=== PATIENT | male | born 1980 | race Caucasian/White ===

== ENCOUNTER 2019-09-06 13:55 | Inpatient (IN) | payer MEDICAID ==
[~2019-09-06] VITALS: Ht 167.6 cm; Wt 79.4 kg
[2019-09-06 13:59] VITALS: Ht 167.6 cm; Wt 79.4 kg
--- NOTE | 2019-09-06 14:08 | NUR ---
PT BIBA FROM HOME WITH CO RECTAL PAIN. PER MEDIC PT HAS BEEN HAVING THIS PAIN SINCE 09/02/19 AND HAS BEEN SEEN AT [facility] AND DX WITH HEMMRHOIDS AND PT STILL CO PAIN 07/06. UPON OBSERVATION NO HEMMRHOIDS NOTED OUTSIDE. PT IS AWAKE AND ALERT. BREATHING EVEN AND UNLABORED. PT RECLINING ON GURNEY WITH NAD. PT IS HOOKED UP TO FULL MONITORS, SIDE RAILS UP, WILL CONTINUE TOMONITOR.
[2019-09-06 15:04] LABS: PLATELET COUNT 288 x10^3mcL (130-400); RED CELL DISTRIBUTION WIDTH 12.2 % (11.5-14.5)
[2019-09-06 15:17] LABS: CALCIUM 9.2 mg/dL (8.5-10.1); CARBON DIOXIDE 31.8 mmol/L (21-32); CHLORIDE SERUM 100 mmol/L (98-107); CREATININE SERUM 0.9 mg/dL (0.7-1.3); GFR1 > 60 mL/min; GLUCOSE SERUM 139 mg/dL (74-106); SODIUM SERUM 139 mmol/L (136-145)
[2019-09-06 15:20] LABS: MONOCYTE 7 % (0-7); SEGMENTED NEUTROPHILS 86 % (37-75)
[2019-09-06 15:21] LABS: PLATELET MORPHOLOGY PLATELETS NORMAL; rbc morphology (normal/abnorm) NORMAL (NORMAL)
[2019-09-06 15:22] LABS: ALBUMIN 3.7 g/dL (3.4-5.0); ALKALINE PHOSPHATASE 102 U/L (46-116); ALT/SGPT 58 U/L (16-63); AST/SGOT 22 U/L (15-37); BILIRUBIN TOTAL 0.5 mg/dL (0.20-1.00); TOTAL PROTEIN, SERUM 8.4 g/dL (6.4-8.2)
[2019-09-06 15:39] LABS: UA SPECIFIC GRAVITY <=1.005 (1.005-1.035); microscopic required? YES; urine erythrocyte TRACE (NEGATIVE)
--- NOTE | 2019-09-06 15:55 | NUR ---
PT TAKEN TO CT VIA [facility] WITH NAD NOTED.
--- NOTE | 2019-09-06 16:44 | NUR ---
PT RESTING IN RNEY WITH SIDERAILS UP AND HOOKED UP TO BP AND PULSE OX. WILL CONTINUE TO MONITOR.
[2019-09-06] MEDS ORDERED: ZOFRAN8 MG PO (17:54)
[2019-09-06] MEDS ORDERED: DOK COLACE100 MG PO (17:56)
[2019-09-06] MEDS ORDERED: PERCOCET1 TAB PO (17:56)
--- NOTE | 2019-09-06 19:05 | NUR ---
PT REPORT RECEIVED FROM ABRAHAM RN TO ASSUME PT CARE. PT RESTING IN A POSITION OF COMFORT, PT REMAINS IN 10/10 PAIN AT THIS TIME. PT AOX4, RESPE EVEN AND UNLABORED, MILD DISTRESS NOTED FROM PAIN.
--- NOTE | 2019-09-06 19:17 | NUR ---
PT TRANSFERRED TO OR BY DEONNA MCNEIL. PT AOX4, MILD DISTRESS NOTED DUE TO PAIN, RESP EVEN AND UNLABORED. PER DEONNA MCNEIL, PT REPORT WILL BE CALLED TO THE FLOOR AFTER PROCEDURE DUE TO PT NOT HAVING A ROOM ASSIGNMENT AT THIS TIME.
[2019-09-06 21:27] LABS: AMPHETAMINE QUAL UR NONE DETECTED (See below)
[2019-09-06 21:45] VITALS: BP 115/75
--- NOTE | 2019-09-06 22:04 | NUR ---
RECEIVED PT FROM OR, PT ADMIT FOR RECTAL ABSCESS, PT IS A/O X4, VERBAL RESPONSIIVE. LUNG SOUND CLEAR BILATERAL, NO COUGH, NO SOB. PT DENY ANY CHEST PAIN OR DISCOMFORT, BOWEL SOUND PRESENT ALL 4 QUADRANTS, NO DISTENTION, NO TENDER. S/P I&D AT RIGHT PROXIMAL RECTAL. FIRST DRESSING UNABLE TO REMOVE TO MEASURE THE WOUND, DRESSING INTACT. PT C/O PAIN 2/10 AT THIS MOMENT. PEDAL PULSE PRESENT BOTH FEET, NO EDEMA, IV AT RIGHT AC, NO LEAKING, NO INFILTRATION. ALL ADLS ASSIST, ALL NEED MET, CALL LIGHT IN REACH, WILL CONTINUE TO MONITOR.
--- NOTE | 2019-09-06 22:28 | NUR ---
PT C/O PAIN ON THE SURGICAL AREA. GAVE PT MORPHINE IVP. PT TOLERATED IT WELL. WILL CONTINUE TO MONITOR.
--- NOTE | 2019-09-06 23:30 | NUR ---
RECIEVED PT FROM KALEB RN, PT IS RESTING ON SIDE WITH FAMILY MEMEBER AT BEDSIDE, ALL PT NEEDS ATTENDED TO, PT IN POSITION OF COMFORT AND STABLE, SAFETY PRECAUTIONS IN PLACE WILL CONTINUE TO MONITOR
[2019-09-07 06:00] VITALS: BP 93/57
--- NOTE | 2019-09-07 06:12 | NUR ---
PT RESTED IN BED SINCE ADMISSION WITH ON AND OFF PAIN THAT HAS BEEN TREATED TO EFFECT, BANDAGE WAS REINFORCED WITH TAPE, MODERATED SEROUSANGUINOUS DRAINAGE TO DRESSING, ALL PT NEEDS ATTENDED TO SAFETY PRECAUTIONS IN PLACE WILL CONTINUE TO MONITOR AND ENDORSE CARE
[2019-09-07 07:04] LABS: BASOPHIL % 0.3 % (0-2); PLATELET COUNT 245 x10^3mcL (130-400); RED CELL DISTRIBUTION WIDTH 12.3 % (11.5-14.5)
[2019-09-07 07:19] LABS: CALCIUM 8.8 mg/dL (8.5-10.1); CHLORIDE SERUM 102 mmol/L (98-107); CREATININE SERUM 0.8 mg/dL (0.7-1.3); GFR1 > 60 mL/min; GLUCOSE SERUM 121 mg/dL (74-106); MAGNESIUM 2.2 mg/dL (1.8-2.4); PHOSPHOROUS 3.6 mg/dL (2.5-4.9); POTASSIUM SERUM 3.4 mmol/L (3.5-5.1); SODIUM SERUM 138 mmol/L (136-145)
--- NOTE | 2019-09-07 08:29 | NUR ---
NORCO GIVEN PER EMAR FOR C/O 03/06 PAIN, WILL REASSESS.
[2019-09-07 08:41] VITALS: BP 102/48
--- NOTE | 2019-09-07 09:37 | NUR ---
RECIEVED PT RESTING IN BED WITH NO C/OANY DISTRESS. AT BEDSIDE. DENIES ANY PAIN AT THIS TIME. A/O X4 WITH NO IRIZARRY OR DIZZINESS. LUNGS CTAB. S/P I&D PERIRECATAL ABSCESS. DRESSING SOILED WITH MEDIUM AMOUNT OF BLOOD, WILL CHANGE AND KEEP CLEAN AND DRY. D5-NS45% RUNNING AT 80ML/HR IN RAC, CDI AND PATENT. SAFETY PRECAUTINS IN PLACE, CALL LIGHT WITHIN REACH, WILL MONITOR.
--- NOTE | 2019-09-07 11:02 | NUR ---
MORPHINE GIVEN PER EMAAR FOR C/O 04/05 WOUND PAIN. WOUND DRESSING CHANGED AND D/C GORDON PER MD ORDER. TOLERATED WELL.
[2019-09-07 12:34] VITALS: BP 107/53
--- NOTE | 2019-09-07 12:55 | NUR ---
Discount pharmacy card and list to low cost medical clinics given to patient by Collin Mckinney.
--- NOTE | 2019-09-07 14:52 | NUR ---
NORCO GIVEN PER EMAR FOR C/O 04/05 HETAL-WOUND PAIN, WILL REASSESS.
[2019-09-07 16:48] VITALS: BP 93/58
[2019-09-07 17:00] VITALS: BP 104/55
--- NOTE | 2019-09-07 18:15 | NUR ---
MORPHINE GIVEN PER EMAR FOR C/O 04/05 WOUND PAIN, WILL REASSESS.
--- NOTE | 2019-09-07 18:19 | NUR ---
PT STABLE AT THIS TIME WITH NO C/O ANY DISTRESS. PAIN MANAGEMENT MAINTAINED ALL SHIFT. WOUND DRESSING CHANGED AND CDI AT THIS TIME. GORDON D/C'D DUTING SHIFT, PT TOLERATED WELL AND HAS GOTTEN UP AND USED RESTROOM. A/O X4. D5NS45% RUNNING AT 80ML/HR, IV CDI AND PATENT. SAFETY PRECAUTIONS IN PLACE, CALL LIGHT WITHIN REACH, WILL ENDORSE CARE TO NIGHT NURSE.
--- NOTE | 2019-09-07 18:45 | NUR ---
PT STABLE WITH NO C/O PAIN OR DISTRESS. A/O X4 WITH NO IRIZARRY OR DIZZINESS. VS WNL. LUNGS CTAB. NS RUNNING AT 100ML/HR IN LEFT HAND, CDI AND PATENT WITH NO REDNESS OR INFLAMMATION. SAFETY PRECAUTIONS IN PLACE, CALL LIGHT WITHIN REACH, WILL ENDORSE CARE TO NIGHT NURSE.
--- NOTE | 2019-09-07 20:00 | NUR ---
PT A/A/O X4. DENIES DIZZINESS AND HEADACHE. BREATH SOUNDS CLEAR. BREATHING EVEN AND UNLABORED ON ROOM AIR. DENIES CHEST PAIN AND PRESSURE. BOWEL SOUNDS ACTIVE. NO C/O N/V AND ABD PAIN. SURGICAL WOUND WITH DRESSING NEAR RECTAL AREA C/D/I. PAIN LEVEL OF 6 OUT OF 10. DENIES NEED FOR PAIN MEDICATION. MADE PT COMFORTABLE. PLACED CALL LIGHT WITH IN REACH. WILL CONTINUE TO MONITOR.
[2019-09-07 20:59] VITALS: BP 103/58
--- NOTE | 2019-09-07 22:13 | NUR ---
PT C/O PAIN ON THE SURGICAL SIGHT. GAVE PT NORCO PO. PT TOLERATED IT WELL. WILL CONTINUE TO MONITOR.
--- NOTE | 2019-09-08 00:47 | NUR ---
PT WATCHING TV. NO C/O PAIN ON THE SURGICAL AREA. PT STATED HE HAD A BOWEL MOVEMENT. MADE PT COMFORTABLE. WILL CONTINUE TO MONITOR.
[2019-09-08 04:55] VITALS: BP 97/62
--- NOTE | 2019-09-08 05:18 | NUR ---
PT C/O PAIN ON THE SURGICAL SITE. GAVE PT NORCO PO. PT TOLERATED IT WELL. DRESSING ON THE BUTTOCKS INTACT WITH SMALL AMOUNT OF SANGUINEOUS DRAIN. IV INTACT AND INFUSING ORDERED. WILL ENDORSE TO THE AM NURSE ACCORDINGLY.
[2019-09-08 06:51] LABS: BASOPHIL % 0.3 % (0-2); PLATELET COUNT 269 x10^3mcL (130-400); RED CELL DISTRIBUTION WIDTH 12.7 % (11.5-14.5)
[2019-09-08 07:01] LABS: CALCIUM 8.6 mg/dL (8.5-10.1); CARBON DIOXIDE 30.6 mmol/L (21-32); CHLORIDE SERUM 105 mmol/L (98-107); CREATININE SERUM 0.8 mg/dL (0.7-1.3); GFR1 > 60 mL/min; GLUCOSE SERUM 115 mg/dL (74-106); MAGNESIUM 2.3 mg/dL (1.8-2.4); PHOSPHOROUS 3.6 mg/dL (2.5-4.9); SODIUM SERUM 142 mmol/L (136-145)
--- NOTE | 2019-09-08 07:23 | NUR ---
RECEIVED PT FROM RADIO PRESENTER NURSE. PT RESTING IN BED, AOX4, RESP E/U ON RA. DENIES NAUSEA OR RECTAL PAIN AT THIS TIME, DRESSING TO MID BUTTOCKS CDI S/P I AND D OF PERIRECTAL ABSCESS. NO ACUTE DISTRESS NOTED. IV TO RAC W/ NO SIGNS OF INFILTRATION, IVF INFUSING WELL. BED IN LOWEST POSITION AND CALL LIGHT WITHIN REACH. WILL CONTINUE TO MONITOR.
[2019-09-08 07:48] VITALS: BP 124/78
[2019-09-08] MEDS ORDERED: KEFLEX500 M1 PO (10:29)
[2019-09-08] MEDS ORDERED: MOT600 PO (10:30)
[2019-09-08] MEDS ORDERED: FLA500 PO (11:24)
[2019-09-08] MEDS ORDERED: CIPRO500 MG PO (11:25)
[2019-09-08 11:48] VITALS: BP 105/63
[2019-09-08 11:52] VITALS: BP 124/78
[2019-09-08 12:00] VITALS: BP 124/78
--- NOTE | 2019-09-08 12:34 | NUR ---
PT SEEN AT BEDSIDE. PROVIDED WOUND CARE TEACHING TO PT AND FAMILY. INSTRUCTED PT TO CHANGE DRESSING W/ DRY DRESSING, 4X4 GAUZE AND ISLAND DRESSING DAILY OR NEEDED IF SOILED. PT AND FAMILY COMPLIANT W/ INSTRUCTIONS. WOUND CARE DONE, DRESSING TO R MID BUTTOCKS CDI. PT C/O PAIN RATED 6/10 TO WOUND SITE. MEDICATED ORDERED PER EMAR, COMFORT MEASURES IMPLEMENTED. BED IN LOWEST POSITION AND CALL LIGHT WITHIN REACH. WILL CONTINUE TO MONITOR.
--- NOTE | 2019-09-08 15:43 | NUR ---
PT DISCHARGED. REVIEWED DISCHARGE PACKET W/ PT, INCLUDING NEW RX MEDS, FOLLOW UP INSTRUCTIONS AND WOUND CARE. PT AOX4, RESP E/U, VS STABLE, DENIES PAIN AT THIS TIME. IV TO RAC REMOVED, CATH INTACT, GAUZE DRESSING APPLIED. PT AMBULATORY TO DISCHARGE OFFICE W/ NO ACUTE INCIDENCE.
== END 2019-09-08 15:41 | disposition home or self-care (01) | DRG 710 ==
LOC: ED 13:55 → MU 18:47
PROVIDERS: Emergency Medicine; Surgery; ADMIT Internal Medicine
PROC: 0D9P0ZZ Drainage of Rectum, Open Approach (ICD-10-PCS; principal; 2019-09-06 18:30)
DX: A41.9 Sepsis, unspecified organism (principal); K61.2 Anorectal abscess; N39.0 Urinary tract infection, site not specified; N41.0 Acute prostatitis; Z68.27 Body mass index [BMI] 27.0-27.9, adult
CPT/HCPCS: G0378; J0690; J0696; J2250; J2270; J2405; J2704; J3010; J3490; J7060; J7120; Q0092; Q9967

== ENCOUNTER 2020-06-26 12:01 | Emergency (ER) | payer MEDICAID ==
[~2020-06-26] VITALS: Ht 170.2 cm; Wt 76.2 kg
[~2020-06-26 12:01] MED LIST: CIPRO500 MG PO; DOK COLACE100 MG PO; FLA500 PO; KEFLEX500 M1 PO; MOT600 PO; PERCOCET1 TAB PO; ZOFRAN8 MG PO
[2020-06-26 12:50] VITALS: Ht 170.2 cm; Wt 76.2 kg
[2020-06-26 13:46] LABS: BASOPHIL % 0.6 % (0-2); PLATELET COUNT 225 x10^3mcL (130-400); RED CELL DISTRIBUTION WIDTH 12.7 % (11.5-14.5)
[2020-06-26 14:06] LABS: CALCIUM 9.3 mg/dL (8.5-10.1); CARBON DIOXIDE 26.6 mmol/L (21-32); CHLORIDE SERUM 103 mmol/L (98-107); CREATININE SERUM 0.9 mg/dL (0.7-1.3); GFR1 > 60 mL/min; GLUCOSE SERUM 105 mg/dL (74-106); POTASSIUM SERUM 3.7 mmol/L (3.5-5.1); SODIUM SERUM 138 mmol/L (136-145)
[2020-06-26 14:10] LABS: ALBUMIN 4.4 g/dL (3.4-5.0); ALKALINE PHOSPHATASE 71 U/L (46-116); ALT/SGPT 37 U/L (16-63); AST/SGOT 25 U/L (15-37); BILIRUBIN TOTAL 0.69 mg/dL (0.20-1.00)
[2020-06-26 14:23] VITALS: BP 106/65
== END 2020-06-26 15:50 | disposition home or self-care (01) ==
LOC: ED 12:01
PROVIDERS: Emergency Medicine
DX: L03.317 Cellulitis of buttock (principal)
CPT/HCPCS: Q9967